=== PATIENT | male | born 1985 | race Caucasian/White ===

== ENCOUNTER → 2018-05-12 | Outpatient (CLI) | payer OTHER | END | disposition home or self-care (01) | LOC: CARD 09:00 | PROVIDERS: ATTEND Nurse Practitioner Acute Care | DX: R56.9 Unspecified convulsions (principal); G46.3 Brain stem stroke syndrome; M54.2 Cervicalgia; G44.329 Chronic post-traumatic headache, not intractable; E78.5 Hyperlipidemia, unspecified; D75.1 Secondary polycythemia; G47.30 Sleep apnea, unspecified; H53.469 Homonymous bilateral field defects, unspecified side | CPT/HCPCS: 95819 ==